=== PATIENT | male | born 2000 | race Two or more races ===

== ENCOUNTER 2024-08-03 10:09 | Emergency (ER) | payer MEDICAID, OTHER ==
[~2024-08-03] VITALS: Ht 167.6 cm; Wt 52.0 kg
[2024-08-03 12:18] VITALS: BP 122/75; PULSE 103; RESP 20; TEMP 99.4; O2SAT 99
[2024-08-03] MEDS ORDERED: METH-1181 PO (12:34)
[2024-08-03] MEDS ORDERED: IBUP-1455 PO (12:34)
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
== END 2024-08-03 12:39 | disposition home or self-care (01) ==
LOC: ER 10:09
DX: M79.18 Myalgia, other site (principal); M25.552 Pain in left hip; V89.2XXA Person injured in unspecified motor-vehicle accident, traffic, initial encounter; Y93.89 Activity, other specified; Y92.410 Unspecified street and highway as the place of occurrence of the external cause; Y99.8 Other external cause status